=== PATIENT | female | born 1985 | race Caucasian/White ===

== ENCOUNTER 2023-05-25 08:27 | Outpatient (CLI) | payer OTHER | END 2023-05-25 08:28 | disposition home or self-care (01) | LOC: BICCT 08:27 | PROVIDERS: ATTEND Specialist | DX: H71.91 Unspecified cholesteatoma, right ear (principal); H74.8X2 Other specified disorders of left middle ear and mastoid; H70.92 Unspecified mastoiditis, left ear | CPT/HCPCS: 70482 ==